=== PATIENT | female | born 1970 | race Caucasian/White ===

== ENCOUNTER 2018-07-06 17:54 | Emergency (ER) | payer OTHER ==
[~2018-07-06] VITALS: Ht 154.9 cm; Wt 72.6 kg
[2018-07-06] MEDS ORDERED: TYLENOL-CODEINE1 TA1 (18:00)
[2018-07-07] MEDS ORDERED: NEURONTIN300 MG PO (23:00)
[2018-07-07] MEDS ORDERED: TYLENOL-CODEINE1 TA1 PO (23:01)
[2018-07-07] MEDS ORDERED: ELESTRIN26 GM TD (23:02)
[2018-07-07] MEDS ORDERED: FLOVENT HFA12 G1 IH (23:02)
[2018-07-07] MEDS ORDERED: VITAMIN D2400 UNIT PO (23:03)
[2018-07-07] MEDS ORDERED: BIOTIN10 MG PO (23:03)
[2018-07-07] MEDS ORDERED: ZYRTEC10 M3 PO (23:05)
[2018-07-07] MEDS ORDERED: NASACORT16.9 ML NASAL (23:05)
== END 2018-07-06 22:58 | disposition home or self-care (01) ==
LOC: ER 17:54
DX: G35 Multiple sclerosis (principal)

== ENCOUNTER 2018-07-07 22:44 | Inpatient (IN) | payer OTHER ==
[~2018-07-07] VITALS: Ht 154.9 cm; Wt 160.0 kg
[~2018-07-07 22:44] MED LIST: TYLENOL-CODEINE1 TA1
[2018-07-07] MEDS ORDERED: NEURONTIN300 MG PO (23:00)
[2018-07-07] MEDS ORDERED: TYLENOL-CODEINE1 TA1 PO (23:01)
[2018-07-07] MEDS ORDERED: FLOVENT HFA12 G1 IH (23:02)
[2018-07-07] MEDS ORDERED: ELESTRIN26 GM TD (23:02)
[2018-07-07] MEDS ORDERED: VITAMIN D2400 UNIT PO (23:03)
[2018-07-07] MEDS ORDERED: BIOTIN10 MG PO (23:03)
[2018-07-07] MEDS ORDERED: ZYRTEC10 M3 PO (23:05)
[2018-07-07] MEDS ORDERED: NASACORT16.9 ML NASAL (23:05)
--- NOTE | 2018-07-07 23:06 | NUR ---
SE RECIBE PACIENTE ALERTA Y ORIENTADA X3, CON BUEN PATRON RESPIRATORIO Y SIGNOS VITALES ESTABLES, REFIERE ALTHEA DOLOR EN TODO EL CUERPO. SE KATELYN EN PASQUALE DE ESPERA EN ESPERA DE SER EVALUADA.
--- NOTE | 2018-07-08 01:54 | NUR ---
PTE EVALUADA POR EL DR LLOYD [place]. MS G ROJAS ORIENTA SOBRE EL MISMO, LO CUAL REFIERE ENTENDER, REALIZA PRUEBAS DE LABORATORIO Y ADMINISTRA MEDICAMENTOS MAGALIE ORDEN MEDICA Y SIGUIENDO MEDIDAS ASEPTICAS.
--- NOTE | 2018-07-08 08:48 | NUR ---
SE RECIBE DE TURNO ANTERIOR. PACIENTE FEMENINA. ALERTA Y ORIENTADA EN ANDREW ESFERAS. BUEN PATRON RESPIRATORIO. PIEL TIBIA AL TACTO. CANALIZACION PATENTE, TAL DE EDEMA Y/O ENROJECIMIENTO CON HEPARIN LOCK COLOCADO. PACIENTE EN ESPERA DE RE-EVALUACION MEDICA.
== END 2018-07-15 18:11 | disposition home or self-care (01) | DRG 60 ==
LOC: ER 22:44 → SURH 07-08 20:14 → MEDJ 07-08 20:14 → SEC-K 07-08 20:14 → MEDJ 07-08 22:29 → SURH 07-10 18:12
PROVIDERS: ADMIT Internal Medicine
PROC: B030ZZZ Magnetic Resonance Imaging (MRI) of Brain (ICD-10-PCS; principal; 2018-07-08)
PROC: B03BZZZ Magnetic Resonance Imaging (MRI) of Spinal Cord (ICD-10-PCS; 2018-07-08)
DX: G35 Multiple sclerosis (principal); G58.8 Other specified mononeuropathies; R29.898 Other symptoms and signs involving the musculoskeletal system
CPT/HCPCS: 70551; 72141

== ENCOUNTER 2018-07-16 11:48 | Emergency (ER) | payer OTHER ==
[~2018-07-16] VITALS: Ht 154.9 cm; Wt 74.8 kg
[~2018-07-16 11:48] MED LIST changes: +BIOTIN10 MG PO; +ELESTRIN26 GM TD; +FLOVENT HFA12 G1 IH; +NASACORT16.9 ML NASAL; +NEURONTIN300 MG PO; +TYLENOL-CODEINE1 TA1 PO; +VITAMIN D2400 UNIT PO; +ZYRTEC10 M3 PO
== END 2018-07-16 19:08 | disposition home or self-care (01) ==
LOC: ER 11:48
DX: G35 Multiple sclerosis (principal)